=== PATIENT | female | born 1970 | race Two or more races ===

== ENCOUNTER 2019-11-18 03:55 | Inpatient (IN) | payer OTHER ==
[~2019-11-18] VITALS: Ht 170.2 cm; Wt 65.3 kg
[2019-11-18] MEDS ORDERED: HYDROmorphone 2 MG/ML VIAL IV ONE ×2 (04:15→05:15)
[2019-11-18] MEDS ORDERED: ONDANSETRON PF 4 MG/2 ML VIAL. IVP ONE (04:45)
[2019-11-18] MEDS ORDERED: IV NORMAL SALINE 500ML BAG 500 ML IV ONE (04:45)
--- NOTE | 2019-11-18 04:48 | PHYS DOC ---
Past Medical History Past Medical History: No Pertinent History (ОЛЬГА FIGUEREDO MD) Past Surgical History: (ОЛЬГА FIGUEREDO MD) Smoking Status: Never Smoker Alcohol Use: None (ОЛЬГА FIGUEREDO MD) General Adult EDM: Chief Complaint: ABDOMINAL PAIN HPI: HPI: Patient is a 49 year old female who presents with complaints of acute onset of abdominal pain. Patient reports that she was at home when she began to have pain in the epigastrium. She reports that the pain seems to go from the epigastrium into her low back. She describes it as a burning sensation that is constant. She has had nausea and vomiting x1 without any diarrhea. She denies fever, chills or sweats. She reports that she had been in her usual state of fair health. Patient has no past medical history is had a as her only surgery. (ОЛЬГА FIGUEREDO MD) Review of Systems: Review of Systems: Constitutional: Denies fever or chills. [] Eyes: Denies change in visual acuity. [] HENT: Denies nasal congestion or sore throat. [] Respiratory: Denies cough or shortness of breath. [] Cardiovascular: Denies chest pain or edema. [] GI: See HPI. [] : Denies dysuria. [] Musculoskeletal: Denies back pain or joint pain. [] Integument: Denies rash. [] Neurologic: Denies headache, focal weakness or sensory changes. [] Endocrine: Denies polyuria or polydipsia. [] Lymphatic: Denies swollen glands. [] Psychiatric: Denies depression or anxiety. [] (ОЛЬГА FIGUEREDO MD) Heart Score: Risk Factors: Risk Factors: DM, Current or recent (<one month) smoker, HTN, HLP, family his tory of CAD, obesity. Risk Scores: Score 0 - 3: 2.5% MACE over next 6 weeks - Discharge Home Score 4 - 6: 20.3% MACE over next 6 weeks - Admit for Clinical Observation Score 7 - 10: 72.7% MACE over next 6 weeks - Early Invasive Strategies (ОЛЬГА FIGUEREDO MD) Allergies: Allergies: Allergies Coded Allergies Type Severity Reaction Last Updated Verified No Known Drug Allergies 11/18/19 No (ОЛЬГА FIGUEREDO MD) Physical Exam: PE: Constitutional: Well developed, well nourished, no acute distress, non-toxic appearance. [] HENT: Normocephalic, atraumatic, bilateral external ears normal, oropharynx moist, no oral exudates, nose normal. [] Eyes: PERRLA, EOMI, conjunctiva normal, no discharge. [] Neck: Normal range of motion, no tenderness, supple, no stridor. [] Cardiovascular:Heart rate regular rhythm, no murmur [] Lungs & Thorax: Bilateral breath sounds clear to auscultation [] Abdomen: Decreased bowel sounds, soft, tender in the right upper quadrant and epigastrium, positive Blanco sign, voluntary guarding, no rebound. [] Skin: Warm, dry, no erythema, no rash. [] Back: No tenderness, bilateral CVA tenderness left greater than right. [] Extremities: No tenderness, no cyanosis, no clubbing, ROM intact, no edema. [] Neurologic: Alert and oriented X 3, normal motor function, normal sensory function, no focal deficits noted. [] Psychologic: Affect normal, judgement normal, mood normal. [] (ОЛЬГА FIGUEREDO MD) Current Patient Data: Vital Signs: Vital Signs Date Time Temp Pulse Resp B/P (MAP) Pulse Ox O2 Delivery O2 Flow Rate FiO2 11/18/19 04:28 97.9 84 28 142/66 (91) 99 Room Air 97.9 (ОЛЬГА FIGUEREDO MD) Labs: Laboratory Tests Test 11/18/19 04:45 11/18/19 04:58 11/18/19 05:02 White Blood Count 7.0 x10^3/uL Red Blood Count 4.16 x10^6/uL Hemoglobin 12.1 g/dL Hematocrit 35.8 % Mean Corpuscular Volume 86 fL Mean Corpuscular Hemoglobin 29 pg Mean Corpuscular Hemoglobin Concent 34 g/dL Red Cell Distribution Width 13.8 % Platelet Count 236 x10^3/uL Neutrophils (%) (Auto) 62 % Lymphocytes (%) (Auto) 28 % Monocytes (%) (Auto) 8 % Eosinophils (%) (Auto) 2 % Basophils (%) (Auto) 1 % Neutrophils # (Auto) 4.3 x10^3/uL Lymphocytes # (Auto) 1.9 x10^3/uL Monocytes # (Auto) 0.5 x10^3/uL Eosinophils # (Auto) 0.2 x10^3/uL Basophils # (Auto) 0.0 x10^3/uL Prothrombin Time 15.4 SEC Prothromb Time International Ratio 1.3 Sodium Level 140 mmol/L Potassium Level 3.5 mmol/L Chloride Level 105 mmol/L Carbon Dioxide Level 24 mmol/L Anion Gap 11 Blood Urea Nitrogen 12 mg/dL Creatinine 0.7 mg/dL Estimated GFR (Cockcroft-Gault) 89.7 BUN/Creatinine Ratio 17 Glucose Level 157 mg/dL Lactic Acid Level 2.2 mmol/L Calcium Level 8.4 mg/dL Total Bilirubin 0.2 mg/dL Aspartate Amino Transf (AST/SGOT) 23 U/L Alanine Aminotransferase (ALT/SGPT) 34 U/L Alkaline Phosphatase 92 U/L Total Protein 7.0 g/dL Albumin 3.2 g/dL Albumin/Globulin Ratio 0.8 Lipase 171 U/L Urine Collection Type Unknown Urine Color Yellow Urine Clarity Clear Urine pH 7.0 Urine Specific [place] 1.020 Urine Protein Negative mg/dL Urine Glucose (UA) 250 mg/dL Urine Ketones (Stick) Negative mg/dL Urine Blood Negative Urine Nitrite Negative Urine Bilirubin Negative Urine Urobilinogen Dipstick 1.0 mg/dL Urine Leukocyte Esterase Negative Urine RBC 0 /HPF Urine WBC Occ /HPF Urine Squamous Epithelial Cells Few /LPF Urine Bacteria 0 /HPF Urine Mucus Slight /LPF Bedside Urine HCG, Qualitative Hcg negative Current Medications Medications (Trade) Dose Ordered Sig/Kiki Route PRN Reason Start Time Stop Time Status Last Admin Dose Admin Hydromorphone HCl (Dilaudid) 1 mg 1X ONCE IV 11/18/19 04:15 11/18/19 04:16 Cancel Sodium Chloride 500 ml @ 500 mls/hr 1X ONCE IV 11/18/19 04:45 11/18/19 05:44 DC 11/18/19 04:45 Ondansetron HCl (Zofran) 4 mg 1X ONCE IVP 11/18/19 04:45 11/18/19 05:17 DC 11/18/19 05:19 Hydromorphone HCl (Dilaudid) 1 mg 1X ONCE IV 11/18/19 05:15 11/18/19 05:17 DC 11/18/19 05:19 Ondansetron HCl (Zofran) 4 mg STK-MED ONCE .ROUTE 11/18/19 05:17 11/18/19 05:17 DC Iohexol (Omnipaque 300 Mg/ml) 75 ml 1X ONCE IV 11/18/19 06:45 11/18/19 06:46 DC 11/18/19 06:46 Info (CONTRAST GIVEN -- Rx MONITORING) 1 each PRN DAILY PRN MC SEE COMMENTS 11/18/19 06:45 11/20/19 06:44 Vital Signs: Vital Signs Date Time Temp Pulse Resp B/P (MAP) Pulse Ox O2 Delivery O2 Flow Rate FiO2 11/18/19 07:10 62 121/61 (81) 98 Room Air 11/18/19 06:40 63 20 141/69 (93) 98 Room Air 11/18/19 05:55 68 22 137/67 (90) 98 Room Air 11/18/19 05:19 24 97 Room Air 11/18/19 04:28 97.9 84 28 142/66 (91) 99 Room Air 97.9 (HIPOLITO LA MD) EKG: EKG: [] (ОЛЬГА FIGUEREDO MD) Radiology/Procedures: Radiology/Procedures: [] (ОЛЬГА FIGUEREDO MD) Radiology/Procedures: [facility] [address] [facility] [place], [place] [id number] IMAGING REPORT Signed PATIENT: KELVIN MEDINAACCOUNT: [id number] : 1970 LOCATION: ER AGE: 49 SEX: F EXAM STATUS: REG ER ORD. PHYSICIAN: ОЛЬГА FIGUEREDO MD REASON: RUQ abd pain with positive blanco's sign PROCEDURE: CT ABD PELV W/ IV CONTRST ONLY CT abdomen and pelvis with contrast PQRS statement: CT scans at this facility use dose reduction including either automated exposure control, iterative reconstructions, and /or weight based radiation dosing via mA and kV modification when appropriate to reduce radiation dose to as low as reasonably achievable. Contrast: 75 mL Omnipaque 300 intravenous contrast. HISTORY: Right upper quadrant abdominal pain. Abdomen findings: Peripherally calcified hypodensity gallbladder neck likely gallstones. There is subtle hypodensity about the color fossa between the liver surface in the gallbladder which could be edema from inflammation. Pancreas, liver, adrenal glands, kidneys and spleen are unremarkable. 3 cm fatty umbilical abdominal wall hernia. No herniation of bowel. Appendix is negative. No abdominal fluid or adenopathy. Pelvis findings: 2 cm hypodense ring-enhancing lesion left ovary. Small volume of dependent pelvic free fluid. Bladder, uterus, right ovary, rectum and bones are unremarkable. IMPRESSION: 1. Cholelithiasis. There is subtle hypodensity at the gallbladder fossa which could indicate mild edema from inflammation due to early changes of cholecystitis. This could be more definitely characterized with abdominal sonography. 2. Appendix is negative. 3. 2 subcentimeter ring-enhancing hypodense lesion of the left ovary, most likely a ruptured follicle or ruptured cyst. This may be further assessed with pelvic sonography. Electronically signed by: Rah Gonzáles MD (11/18/2019 6:54 AM) [facility] [place] DICTATED and SIGNED BY: RAH GONZÁLES MD DATE: 11/18/19653 (HIPOLITO LA MD) Course & Med Decision Making: Course & Med Decision Making Pertinent Labs and Imaging studies reviewed. (See chart for details) 0600-patient will be turned over to Dr. La. All pertinent history, physical and work-up data were discussed with the accepting physician. [] (ОЛЬГА FIGUEREDO MD) Course & Med Decision Making Received signout from overnight doc regarding this 49-year-old patient with right upper quadrant pain. CT scan was done and signed over to me. CT shows gallstones. Ultrasound was done to rule out cholecystitis. Lab work looks reassuring. Patient with acute cholecystitis on ultrasound. Patient given antibiotics. Patient will be admitted to Dr. Snyder with a consult placed with Dr. Marks. (HIPOLITO LA MD) Dragon Disclaimer: Dragon Disclaimer: This electronic medical record was generated, in whole or in part, using a voice recognition dictation system. (ОЛЬГА FIGUEREDO MD) Departure Departure Impression: Primary Impression: Acute cholecystitis Additional Impression: RUQ pain Disposition: ADMITTED INPATIENT Admitting Physician: RACHEL (taylor) (HIPOLITO LA MD) Condition: STABLE Justicifation of Admission Dx: Justifications for Admission: Justification of Admission Dx: N/A (ОЛЬГА FIGUEREDO MD) Justification of Admission Dx: Yes (HIPOLITO LA MD) ОЛЬГА FIGUEREDO MD Nov 18, 2019 04:48 HIPOLITO LA MD Nov 18, 2019 07:03
[2019-11-18 05:15] LABS: BILIRUBIN,URINE NEGATIVE (NEG); CLARITY,URINE CLEAR; COLOR,URINE YELLOW; NITRITE,URINE NEGATIVE (NEG); PROTEIN,URINE NEGATIVE (NEG-TRACE)
[2019-11-18] MEDS ORDERED: ONDANSETRON PF 4 MG/2 ML VIAL. ONE (05:17)
[2019-11-18 05:35] LABS: BASO % 1 % (0-3); EOS # 0.2 x10^3/uL (0.0-0.7); EOS % 2 % (0-3); HEMATOCRIT 35.8 % (36.0-47.0); HEMOGLOBIN 12.1 g/dL (12.0-15.5); LYMPH # 1.9 x10^3/uL (1.0-4.8); LYMPH % 28 % (24-48); MEAN CORPUSCULAR HEMOGLOBIN 29 pg (25-35); MEAN CORPUSCULAR HGB CONC 34 g/dL (31-37); MEAN CORPUSCULAR VOLUME 86 fL (79-100); MONO # 0.5 x10^3/uL (0.0-1.1); MONO % 8 % (0-9); NEUT # 4.3 x10^3/uL (1.8-7.7); NEUT % 62 % (31-73); PLATELET COUNT 236 x10^3/uL (140-400); RED BLOOD COUNT 4.16 x10^6/uL (3.50-5.40); RED CELL DISTRIBUTION WIDTH 13.8 % (11.5-14.5)
[2019-11-18 05:48] LABS: RBC,URINE 0 /HPF (0-2)
[2019-11-18 05:49] LABS: BACTERIA,URINE 0 /HPF (0-FEW); SQUAMOUS EPITHELIAL CELL,UR FEW /LPF; WBC,URINE OCC /HPF (0-4)
[2019-11-18 05:53] LABS: PROTHROMBIN TIME PATIENT 15.4 SEC (11.7-14.0)
[2019-11-18 06:04] LABS: CALCIUM 8.4 mg/dL (8.5-10.1); CREATININE 0.7 mg/dL (0.6-1.0); GFR 89.7; POTASSIUM 3.5 mmol/L (3.5-5.1)
[2019-11-18 06:10] LABS: ALBUMIN 3.2 g/dL (3.4-5.0); ALBUMIN/GLOBULIN RATIO 0.8 (1.0-1.7); TOTAL BILIRUBIN 0.2 mg/dL (0.2-1.0)
[2019-11-18] MEDS ORDERED: IOHEXOL 300 MG/ML 100ML VIAL. IV ONE (06:45)
[2019-11-18] MEDS ORDERED: CONTRAST GIVEN. MC PRN (06:45)
--- NOTE | 2019-11-18 06:57 | RAD ---
CT abdomen and pelvis with contrast PQRS statement: CT scans at this facility use dose reduction including either automated exposure control, iterative reconstructions, and /or weight based radiation dosing via mA and kV modification when appropriate to reduce radiation dose to as low as reasonably achievable. Contrast: 75 mL Omnipaque 300 intravenous contrast. HISTORY: Right upper quadrant abdominal pain. Abdomen findings: Peripherally calcified hypodensity gallbladder neck likely gallstones. There is subtle hypodensity about the color fossa between the liver surface in the gallbladder which could be edema from inflammation. Pancreas, liver, adrenal glands, kidneys and spleen are unremarkable. 3 cm fatty umbilical abdominal wall hernia. No herniation of bowel. Appendix is negative. No abdominal fluid or adenopathy. Pelvis findings: 2 cm hypodense ring-enhancing lesion left ovary. Small volume of dependent pelvic free fluid. Bladder, uterus, right ovary, rectum and bones are unremarkable. IMPRESSION: 1. Cholelithiasis. There is subtle hypodensity at the gallbladder fossa which could indicate mild edema from inflammation due to early changes of cholecystitis. This could be more definitely characterized with abdominal sonography. 2. Appendix is negative. 3. 2 subcentimeter ring-enhancing hypodense lesion of the left ovary, most likely a ruptured follicle or ruptured cyst. This may be further assessed with pelvic sonography. Electronically signed by: Glenroy Laurent MD (11/18/2019 6:54 AM) [facility]
--- NOTE | 2019-11-18 09:01 | RAD ---
ABDOMEN LTD History: Reason: RUQ PAIN, ABNORMAL CT / Spl. Instructions: / History: Comparison: CT November 18, 2019. Technique: Transabdominal ultrasound images are obtained of the right upper quadrant. Findings: Visualized pancreas is is not well seen due to overlying bowel gas Liver is increased in echogenicity. Portal flow is hepatopedal. Cholelithiasis with no mobile stone in the gallbladder neck. Contracted appearance of the gallbladder. Gallbladder wall thickening. Masslike thickening of the gallbladder fundus measures 4.2 x 1.3 cm. There is increased flow within this region. Borderline dilated common bile duct measures 7 mm. The right kidney measures 10.6 cm. No hydronephrosis. Visualized portions of the aorta and IVC have normal caliber. IMPRESSION: 1. Contracted appearance the gallbladder with masslike wall thickening and increased blood flow as well as cholelithiasis. Findings may represent acute cholecystitis. MRI with and without contrast can further evaluate for underlying mass. 2. Borderline dilated common bile duct. Recommend correlation with biliary lab values. MRCP can also further evaluate. 3. Increased hepatic echotexture, may indicate steatosis. Electronically signed by: Yared Al DO (11/18/2019 8:58 AM) [facility]
[2019-11-18] MEDS ORDERED: MORPHINE SULFATE 2 MG/ML VIAL. IV PRN (09:45)
[2019-11-18] MEDS ORDERED: ONDANSETRON PF 4 MG/2 ML VIAL. IV PRN ×2 (09:45→10:15)
--- NOTE | 2019-11-18 09:56 | PDOC1 ---
History and Physical Date of Admission Date of Admission DATE: 11/18/19 TIME: 09:55 Identification/Chief Complaint Chief Complaint SEEN IN ER WITH US CONCERNING FOR ACUTE CHOLECYSTITIS , 49 year old female who presents with complaints of acute onset of abdominal pain. Patient reports that she was at home when she began to have pain in the epigastrium. She reports that the pain seems to go from the epigastrium into her low back. // has had nausea and vomiting x1 without any diarrhea. She denies fever, chills or sweats DISCUSSED WITH IN ROOM Past Medical History Past Medical History Past Medical History Past Medical History Past Medical History: No Pertinent History Past Surgical History: Smoking Status: Never Smoker Alcohol Use: None fhx htn Cardiovascular: Hyperlipidemia Family History Family History: Hypertension Social History Smoke: No ALCOHOL: none Drugs: None Current Problem List Problem List Problems Medical Problems: (1) Acute cholecystitis Status: Acute (2) RUQ pain Status: Acute Current Medications Current Medications Current Medications Hydromorphone HCl (Dilaudid) 1 mg 1X ONCE IV ; Start 11/18/19 at 04:15; Stop 11/18/19 at 04:16; Status Cancel Sodium Chloride 500 ml @ 500 mls/hr 1X ONCE IV Last administered on 11/18/19at 04:45; Start 11/18/19 at 04:45; Stop 11/18/19 at 05:44; Status DC Ondansetron HCl (Zofran) 4 mg 1X ONCE IVP Last administered on 11/18/19at 05:19; Start 11/18/19 at 04:45; Stop 11/18/19 at 05:17; Status DC Hydromorphone HCl (Dilaudid) 1 mg 1X ONCE IV Last administered on 11/18/19at 05:19; Start 11/18/19 at 05:15; Stop 11/18/19 at 05:17; Status DC Ondansetron HCl (Zofran) 4 mg STK-MED ONCE .ROUTE ; Start 11/18/19 at 05:17; Stop 11/18/19 at 05:17; Status DC Iohexol (Omnipaque 300 Mg/ml) 75 ml 1X ONCE IV Last administered on 11/18/19at 06:46; Start 11/18/19 at 06:45; Stop 11/18/19 at 06:46; Status DC Info (CONTRAST GIVEN -- Rx MONITORING) 1 each PRN DAILY PRN MC SEE COMMENTS; Start 11/18/19 at 06:45; Stop 11/20/19 at 06:44 Levofloxacin/ Dextrose 150 ml @ 100 mls/hr 1X ONCE IV ; Start 11/18/19 at 09:15; Stop 11/18/19 at 10:44 Ondansetron HCl (Zofran) 4 mg PRN Q8HRS PRN IV NAUSEA/VOMITING; Start 11/18/19 at 09:45; Stop 11/19/19 at 09:44 Morphine Sulfate (Morphine Sulfate) 2 mg PRN Q2HR PRN IV PAIN; Start 11/18/19 at 09:45; Stop 11/19/19 at 09:44 Sodium Chloride 1,000 ml @ 125 mls/hr Q8H IV ; Start 11/18/19 at 09:43; Stop 11/19/19 at 09:42 Allergies Allergies: Coded Allergies: No Known Drug Allergies (Unverified , 11/18/19) ROS Review of System Review of Systems: Constitutional: Denies fever or chills. [] Eyes: Denies change in visual acuity. [] HENT: Denies nasal congestion or sore throat. [] Respiratory: Denies cough or shortness of breath. [] Cardiovascular: Denies chest pain or edema. [] GI: See HPI. [] : Denies dysuria. [] Musculoskeletal: Denies back pain or joint pain. [] Integument: Denies rash. [] Neurologic: Denies headache, focal weakness or sensory changes. [] Endocrine: Denies polyuria or polydipsia. [] Lymphatic: Denies swollen glands. [] Psychiatric: Denies depression or anxiety. [] 14 PT ROS OTHERWISE NEG PSYCHOLOGICAL ROS: No: Anxiety, Behavioral Disorder, Concentration difficultie, Decreased libido, Depression, Disorientation, Hallucinations, Hostility, Irritablity, Memory difficulties, Mood Swings, Obsessive thoughts, Physical abuse, Sexual abuse, Sleep disturbances, Suicidal ideation, Other Hematological and Lymphatic: No: Bleeding Problems, Blood Clots, Blood Transfusions, Brusing, Night Sweats, Pallor, Swollen Lymph Nodes, Other Respiratory: No: Cough, Hemoptysis, Orthopnea, Pleuritic Pain, Shortness of breath, SOB with excertion, Sputum Changes, Stridor, Tachypnea, Wheezing, Other Gastrointestinal: Yes Abdominal Pain Musculoskeletal: No Gait Disturbance, No Joint Pain, No Joint Stiffness, No Joint Swelling, No Muscle Pain, No Muscular Weakness, No Pain In:, No Swelling In:, No Other Skin: No Dry Skin, No Eczema, No Hair Changes, No Lumps, No Mole Changes, No Mottling, No Nail Changes, No Pruritus, No Rash, No Skin Lesion Changes, No Other, No Acne Physical Exam Physical Exam Constitutional: Well developed, well nourished, no acute distress, non-toxic appearance. [] HENT: Normocephalic, atraumatic, bilateral external ears normal, oropharynx moist, no oral exudates, nose normal. [] Eyes: PERRLA, EOMI, conjunctiva normal, no discharge. [] Neck: Normal range of motion, no tenderness, supple, no stridor. [] Cardiovascular:Heart rate regular rhythm, no murmur [] Lungs & Thorax: Bilateral breath sounds clear to auscultation [] Abdomen: Decreased bowel sounds, soft, tender in the right upper quadrant and epigastrium, positive Blanco sign, voluntary guarding, no rebound. [] Skin: Warm, dry, no erythema, no rash. [] Back: No tenderness, bilateral CVA tenderness left greater than right. [] Extremities: No tenderness, no cyanosis, no clubbing, ROM intact, no edema. [] Neurologic: Alert and oriented X 3, normal motor function, normal sensory function, no focal deficits noted. [] Psychologic: Affect normal, judgement normal, mood normal. [] General: Alert, Oriented X3, Cooperative HEENT: Atraumatic, EOMI, Mucous membr. moist/pink Lungs: Clear to auscultation, Normal air movement Heart: S1S2, RRR, no murmurs, no jug vein distention Breasts: Not examined Abdomen: Soft, No masses Rectal Exam: not examined PELVIC: Examination not indicated Extremities: No cyanosis Neuro: Normal speech, Cranial nerves 3-12 NL Psych/Mental Status: Mental status NL, Mood NL Vitals Vitals Vital Signs Date Time Temp Pulse Resp B/P (MAP) Pulse Ox O2 Delivery O2 Flow Rate FiO2 11/18/19 07:10 62 121/61 (81) 98 Room Air 11/18/19 06:40 20 11/18/19 04:28 97.9 97.9 Labs Labs Laboratory Tests Test 11/18/19 04:45 11/18/19 04:58 11/18/19 05:02 White Blood Count 7.0 x10^3/uL (4.0-11.0) Red Blood Count 4.16 x10^6/uL (3.50-5.40) Hemoglobin 12.1 g/dL (12.0-15.5) Hematocrit 35.8 % (36.0-47.0) Mean Corpuscular Volume 86 fL (79-100) Mean Corpuscular Hemoglobin 29 pg (25-35) Mean Corpuscular Hemoglobin Concent 34 g/dL (31-37) Red Cell Distribution Width 13.8 % (11.5-14.5) Platelet Count 236 x10^3/uL (140-400) Neutrophils (%) (Auto) 62 % (31-73) Lymphocytes (%) (Auto) 28 % (24-48) Monocytes (%) (Auto) 8 % (0-9) Eosinophils (%) (Auto) 2 % (0-3) Basophils (%) (Auto) 1 % (0-3) Neutrophils # (Auto) 4.3 x10^3/uL (1.8-7.7) Lymphocytes # (Auto) 1.9 x10^3/uL (1.0-4.8) Monocytes # (Auto) 0.5 x10^3/uL (0.0-1.1) Eosinophils # (Auto) 0.2 x10^3/uL (0.0-0.7) Basophils # (Auto) 0.0 x10^3/uL (0.0-0.2) Prothrombin Time 15.4 SEC (11.7-14.0) Prothromb Time International Ratio 1.3 (0.8-1.1) Sodium Level 140 mmol/L (136-145) Potassium Level 3.5 mmol/L (3.5-5.1) Chloride Level 105 mmol/L (98-107) Carbon Dioxide Level 24 mmol/L (21-32) Anion Gap 11 (6-14) Blood Urea Nitrogen 12 mg/dL (7-20) Creatinine 0.7 mg/dL (0.6-1.0) Estimated GFR (Cockcroft-Gault) 89.7 BUN/Creatinine Ratio 17 (6-20) Glucose Level 157 mg/dL (70-99) Lactic Acid Level 2.2 mmol/L (0.4-2.0) Calcium Level 8.4 mg/dL (8.5-10.1) Total Bilirubin 0.2 mg/dL (0.2-1.0) Aspartate Amino Transf (AST/SGOT) 23 U/L (15-37) Alanine Aminotransferase (ALT/SGPT) 34 U/L (14-59) Alkaline Phosphatase 92 U/L (46-116) Total Protein 7.0 g/dL (6.4-8.2) Albumin 3.2 g/dL (3.4-5.0) Albumin/Globulin Ratio 0.8 (1.0-1.7) Lipase 171 U/L (73-393) Urine Collection Type Unknown Urine Color Yellow Urine Clarity Clear Urine pH 7.0 (<5.0-8.0) Urine Specific [place] 1.020 (1.000-1.030) Urine Protein Negative mg/dL (NEG-TRACE) Urine Glucose (UA) 250 mg/dL (NEG) Urine Ketones (Stick) Negative mg/dL (NEG) Urine Blood Negative (NEG) Urine Nitrite Negative (NEG) Urine Bilirubin Negative (NEG) Urine Urobilinogen Dipstick 1.0 mg/dL (0.2 mg/dL) Urine Leukocyte Esterase Negative (NEG) Urine RBC 0 /HPF (0-2) Urine WBC Occ /HPF (0-4) Urine Squamous Epithelial Cells Few /LPF Urine Bacteria 0 /HPF (0-FEW) Urine Mucus Slight /LPF Bedside Urine HCG, Qualitative Hcg negative (Negative) Laboratory Tests Test 11/18/19 04:45 11/18/19 04:58 11/18/19 05:02 White Blood Count 7.0 x10^3/uL (4.0-11.0) Red Blood Count 4.16 x10^6/uL (3.50-5.40) Hemoglobin 12.1 g/dL (12.0-15.5) Hematocrit 35.8 % (36.0-47.0) Mean Corpuscular Volume 86 fL (79-100) Mean Corpuscular Hemoglobin 29 pg (25-35) Mean Corpuscular Hemoglobin Concent 34 g/dL (31-37) Red Cell Distribution Width 13.8 % (11.5-14.5) Platelet Count 236 x10^3/uL (140-400) Neutrophils (%) (Auto) 62 % (31-73) Lymphocytes (%) (Auto) 28 % (24-48) Monocytes (%) (Auto) 8 % (0-9) Eosinophils (%) (Auto) 2 % (0-3) Basophils (%) (Auto) 1 % (0-3) Neutrophils # (Auto) 4.3 x10^3/uL (1.8-7.7) Lymphocytes # (Auto) 1.9 x10^3/uL (1.0-4.8) Monocytes # (Auto) 0.5 x10^3/uL (0.0-1.1) Eosinophils # (Auto) 0.2 x10^3/uL (0.0-0.7) Basophils # (Auto) 0.0 x10^3/uL (0.0-0.2) Prothrombin Time 15.4 SEC (11.7-14.0) Prothromb Time International Ratio 1.3 (0.8-1.1) Sodium Level 140 mmol/L (136-145) Potassium Level 3.5 mmol/L (3.5-5.1) Chloride Level 105 mmol/L (98-107) Carbon Dioxide Level 24 mmol/L (21-32) Anion Gap 11 (6-14) Blood Urea Nitrogen 12 mg/dL (7-20) Creatinine 0.7 mg/dL (0.6-1.0) Estimated GFR (Cockcroft-Gault) 89.7 BUN/Creatinine Ratio 17 (6-20) Glucose Level 157 mg/dL (70-99) Lactic Acid Level 2.2 mmol/L (0.4-2.0) Calcium Level 8.4 mg/dL (8.5-10.1) Total Bilirubin 0.2 mg/dL (0.2-1.0) Aspartate Amino Transf (AST/SGOT) 23 U/L (15-37) Alanine Aminotransferase (ALT/SGPT) 34 U/L (14-59) Alkaline Phosphatase 92 U/L (46-116) Total Protein 7.0 g/dL (6.4-8.2) Albumin 3.2 g/dL (3.4-5.0) Albumin/Globulin Ratio 0.8 (1.0-1.7) Lipase 171 U/L (73-393) Urine Collection Type Unknown Urine Color Yellow Urine Clarity Clear Urine pH 7.0 (<5.0-8.0) Urine Specific [place] 1.020 (1.000-1.030) Urine Protein Negative mg/dL (NEG-TRACE) Urine Glucose (UA) 250 mg/dL (NEG) Urine Ketones (Stick) Negative mg/dL (NEG) Urine Blood Negative (NEG) Urine Nitrite Negative (NEG) Urine Bilirubin Negative (NEG) Urine Urobilinogen Dipstick 1.0 mg/dL (0.2 mg/dL) Urine Leukocyte Esterase Negative (NEG) Urine RBC 0 /HPF (0-2) Urine WBC Occ /HPF (0-4) Urine Squamous Epithelial Cells Few /LPF Urine Bacteria 0 /HPF (0-FEW) Urine Mucus Slight /LPF Bedside Urine HCG, Qualitative Hcg negative (Negative) Images Images CT abdomen and pelvis with contrast PQRS statement: CT scans at this facility use dose reduction including either automated exposure control, iterative reconstructions, and /or weight based radiation dosing via mA and kV modification when appropriate to reduce radiation dose to as low as reasonably achievable. Contrast: 75 mL Omnipaque 300 intravenous contrast. HISTORY: Right upper quadrant abdominal pain. Abdomen findings: Peripherally calcified hypodensity gallbladder neck likely gallstones. There is subtle hypodensity about the color fossa between the liver surface in the gallbladder which could be edema from inflammation. Pancreas, liver, adrenal glands, kidneys and spleen are unremarkable. 3 cm fatty umbilical abdominal wall hernia. No herniation of bowel. Appendix is negative. No abdominal fluid or adenopathy. Pelvis findings: 2 cm hypodense ring-enhancing lesion left ovary. Small volume of dependent pelvic free fluid. Bladder, uterus, right ovary, rectum and bones are unremarkable. IMPRESSION: 1. Cholelithiasis. There is subtle hypodensity at the gallbladder fossa which could indicate mild edema from inflammation due to early changes of cholecystitis. This could be more definitely characterized with abdominal sonography. 2. Appendix is negative. 3. 2 subcentimeter ring-enhancing hypodense lesion of the left ovary, most likely a ruptured follicle or ruptured cyst. This may be further assessed with pelvic sonography. Electronically signed by: Glenroy Gonzáles MD (11/18/2019 6:54 AM) [facility] [place] [facility] [place] and SIGNED BY: GLENROY GONZÁLES MD DATE: 11/18/19 0654 VTE Prophylaxis Ordered VTE Prophylaxis Devices: Yes VTE Pharmacological Prophylaxi: Yes Assessment/Plan Assessment/Plan IMPRESSION: 1. Cholelithiasis. // subtle hypodensity at the gallbladder fossa mild edema from inflammation due to early changes of cholecystitis. on ct Contracted appearance the gallbladder with masslike wall thickening and increased blood flow as well as cholelithiasis. Findings may represent acute cholecystitis. BY ultrasound 2. Appendix is negative. 3. 2 subcentimeter ring-enhancing hypodense lesion of the left ovary, most likely a ruptured follicle or ruptured cyst. plan admit Surgery consult NPO emperic iv antibiotics covid-19 screen iv fluid support dvt prophylaxis Justicifation of Admission Dx: Justifications for Admission: Justification of Admission Dx: Yes JORGE GALICIA MD Nov 18, 2019 09:56
[2019-11-18] MEDS: IV NORMAL SALINE 1000ML BAG 1,000 ML IV SCH ×2 (09:58→17:37)
[2019-11-18] MEDS ORDERED: MAG HYDROX/ALUMINUM HYD/SIMETH 30 ML ORAL.SUSP PO PRN (10:15)
[2019-11-18] MEDS ORDERED: ACETAMINOPHEN 325 MG TABLET. PO PRN (10:15)
[2019-11-18] MEDS ORDERED: DOCUSATE SODIUM 100 MG CAPSULE. PO PRN (10:15)
[2019-11-18] MEDS ORDERED: SODIUM PHOSPHATES 19/7GM 133 ML ENEMA. PR PRN (10:15)
[2019-11-18] MEDS ORDERED: 0.9 % SODIUM CHLORIDE 10 ML DISP.SYRIN. IV PRN (10:15)
[2019-11-18] MEDS ORDERED: LORazepam 0.5 MG TABLET PO PRN (10:15)
[2019-11-18] MEDS ORDERED: cloNIDine HCL 0.1 MG TABLET PO PRN (10:15)
[2019-11-18] MEDS ORDERED: guaiFENesin ORAL 200 MG/10 ML LIQUID. PO PRN (10:15)
[2019-11-18] MEDS ORDERED: ALBUTEROL SULFATE 2.5 MG/3 ML NEBU. NEB PRN (10:15)
[2019-11-18] MEDS ORDERED: ZOLPIDEM 5 MG TABLET. PO PRN (10:15)
[2019-11-18] MEDS ORDERED: IOHEXOL 300 MG/ML 100ML VIAL. ONE (10:57)
[2019-11-18 11:15] VITALS: BP 152/76
[2019-11-18] MEDS: PIPERACILLIN/TAZOBACTAM 3.375 GM in IV NORMAL SALINE 50ML 50 ML IV SCH ×2 (11:49→17:37)
--- NOTE | 2019-11-18 12:07 | PDOC2 ---
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 Acute onset abdominal pain epigastric, radiates to back. Associated n/v. No constipation or diarrhea. Did have similar symptoms about a month ago. However took some medication and resolved on own. Past Medical History Past Medical History no pertinent hx Cardiovascular: Hyperlipidemia Past Surgical History Past Surgical History: No pertinent history Family History Family History: Hypertension Social History No ALCOHOL: none Drugs: None Lives: with Family Current Problem List Problem List Problems Medical Problems: (1) Acute cholecystitis Status: Acute (2) RUQ pain Status: Acute Current Medications Current Medications Current Medications Hydromorphone HCl (Dilaudid) 1 mg 1X ONCE IV ; Start 11/18/19 at 04:15; Stop 11/18/19 at 04:16; Status Cancel Sodium Chloride 500 ml @ 500 mls/hr 1X ONCE IV Last administered on 11/18/19at 04:45; Start 11/18/19 at 04:45; Stop 11/18/19 at 05:44; Status DC Ondansetron HCl (Zofran) 4 mg 1X ONCE IVP Last administered on 11/18/19at 05:19; Start 11/18/19 at 04:45; Stop 11/18/19 at 05:17; Status DC Hydromorphone HCl (Dilaudid) 1 mg 1X ONCE IV Last administered on 11/18/19at 05:19; Start 11/18/19 at 05:15; Stop 11/18/19 at 05:17; Status DC Ondansetron HCl (Zofran) 4 mg STK-MED ONCE .ROUTE ; Start 11/18/19 at 05:17; Stop 11/18/19 at 05:17; Status DC Iohexol (Omnipaque 300 Mg/ml) 75 ml 1X ONCE IV Last administered on 11/18/19at 06:46; Start 11/18/19 at 06:45; Stop 11/18/19 at 06:46; Status DC Info (CONTRAST GIVEN -- Rx MONITORING) 1 each PRN DAILY PRN MC SEE COMMENTS; Start 11/18/19 at 06:45; Stop 11/20/19 at 06:44 Levofloxacin/ Dextrose 150 ml @ 100 mls/hr 1X ONCE IV Last administered on 11/18/19at 09:59; Start 11/18/19 at 09:15; Stop 11/18/19 at 10:44; Status DC Ondansetron HCl (Zofran) 4 mg PRN Q8HRS PRN IV NAUSEA/VOMITING; Start 11/18/19 at 09:45; Stop 11/18/19 at 10:13; Status DC Morphine Sulfate (Morphine Sulfate) 2 mg PRN Q2HR PRN IV PAIN; Start 11/18/19 at 09:45; Stop 11/19/19 at 09:44 Sodium Chloride 1,000 ml @ 125 mls/hr Q8H IV Last administered on 11/18/19at 09:58; Start 11/18/19 at 09:43; Stop 11/19/19 at 09:42 Sodium Chloride (Normal Saline Flush) 3 ml QSHIFT PRN IV AFTER MEDS AND BLOOD DRAWS; Start 11/18/19 at 10:15 Sodium Chloride 1,000 ml @ 100 mls/hr Q10H IV ; Start 11/19/19 at 10:00 Ondansetron HCl (Zofran) 4 mg PRN Q4HRS PRN IV NAUSEA/VOMITING; Start 11/18/19 at 10:15 Zolpidem Tartrate (Ambien) 5 mg PRN QHS PRN PO INSOMNIA; Start 11/18/19 at 10:15 Acetaminophen (Tylenol) 650 mg PRN Q4HRS PRN PO TEMP OVER 100.4F OR MILD PAIN; Start 11/18/19 at 10:15 Al Hydroxide/Mg Hydroxide (Mylanta Plus Xs) 30 ml PRN DAILY PRN PO HEARTBURN / GAS; Start 11/18/19 at 10:15 Clonidine HCl (Catapres) 0.1 mg PRN Q6HRS PRN PO SBP>160 OR DBP>90; Start 11/18/19 at 10:15 Sodium Monofluorophosphate (Fleet Adult) 133 ml PRN DAILY PRN IN CONSTIPATION; Start 11/18/19 at 10:15 Docusate Sodium (Colace) 100 mg PRN BID PRN PO HARD STOOLS; Start 11/18/19 at 10:15 Albuterol Sulfate (Ventolin Neb Soln) 2.5 mg PRN Q4HRS PRN NEB SHORTNESS OF BREATH; Start 11/18/19 at 10:15 Guaifenesin (Robitussin) 200 mg PRN Q4HRS PRN PO COUGH; Start 11/18/19 at 10:15 Lorazepam (Ativan) 0.5 mg PRN Q4HRS PRN PO ANXIETY / AGITATION; Start 11/18/19 at 10:15 Enoxaparin Sodium (Lovenox 40mg Syringe) 40 mg Q24H SQ ; Start 11/18/19 at 16:00 Piperacillin Sod/ Tazobactam Sod 3.375 gm/Sodium Chloride 50 ml @ 100 mls/hr Q6HRS IV Last administered on 11/18/19at 11:49; Start 11/18/19 at 12:00 Iohexol (Omnipaque 300 Mg/ml) 100 ml STK-MED ONCE .ROUTE ; Start 11/18/19 at 10:57; Stop 11/18/19 at 10:58; Status DC Active Scripts Active Reported No Known Medications Prior To Admisstion (Info) Each 1 Each MC 1X Allergies Allergies: Coded Allergies: No Known Drug Allergies (Unverified , 11/18/19) ROS General: No: Chills, Other (fevers ) PSYCHOLOGICAL ROS: No: Anxiety, Depression Eyes: No Blurry vision, No Double vision HEENT: No: Heacaches, Sore Throat Hematological and Lymphatic: No: Bleeding Problems, Blood Clots Respiratory: No: Cough, Shortness of breath Cardiovascular: No Chest Pain, No Palpitations Gastrointestinal: Yes Other (see hpi) Genitourinary: No Dysuria, No Hematuria Musculoskeletal: No Joint Pain, No Muscle Pain Neurological: No Impaired Coord/balance, No Numbness/Tingling Skin: No Pruritus, No Rash Physical Exam General: Alert, Oriented X3, Cooperative HEENT: Atraumatic, PERRLA Lungs: Clear to auscultation, Normal air movement Heart: Regular rate, Normal S1, Normal S2 Abdomen: Soft, Other (TTP RUQ, epigastric ) Extremities: No clubbing, No cyanosis Skin: No rashes, No breakdown Neuro: Normal gait, Normal speech Psych/Mental Status: Mental status NL, Mood NL MUSCULOSKELETAL: No deformity, No swelling Vitals VITALS Vital Signs Date Time Temp Pulse Resp B/P (MAP) Pulse Ox O2 Delivery O2 Flow Rate FiO2 11/18/19 11:18 Room Air 11/18/19 07:10 62 121/61 (81) 98 11/18/19 06:40 20 11/18/19 04:28 97.9 97.9 Labs Labs Laboratory Tests Test 11/18/19 04:45 11/18/19 04:58 11/18/19 05:02 11/18/19 10:40 White Blood Count 7.0 x10^3/uL (4.0-11.0) Red Blood Count 4.16 x10^6/uL (3.50-5.40) Hemoglobin 12.1 g/dL (12.0-15.5) Hematocrit 35.8 % (36.0-47.0) Mean Corpuscular Volume 86 fL (79-100) Mean Corpuscular Hemoglobin 29 pg (25-35) Mean Corpuscular Hemoglobin Concent 34 g/dL (31-37) Red Cell Distribution Width 13.8 % (11.5-14.5) Platelet Count 236 x10^3/uL (140-400) Neutrophils (%) (Auto) 62 % (31-73) Lymphocytes (%) (Auto) 28 % (24-48) Monocytes (%) (Auto) 8 % (0-9) Eosinophils (%) (Auto) 2 % (0-3) Basophils (%) (Auto) 1 % (0-3) Neutrophils # (Auto) 4.3 x10^3/uL (1.8-7.7) Lymphocytes # (Auto) 1.9 x10^3/uL (1.0-4.8) Monocytes # (Auto) 0.5 x10^3/uL (0.0-1.1) Eosinophils # (Auto) 0.2 x10^3/uL (0.0-0.7) Basophils # (Auto) 0.0 x10^3/uL (0.0-0.2) Prothrombin Time 15.4 SEC (11.7-14.0) Prothromb Time International Ratio 1.3 (0.8-1.1) Sodium Level 140 mmol/L (136-145) Potassium Level 3.5 mmol/L (3.5-5.1) Chloride Level 105 mmol/L (98-107) Carbon Dioxide Level 24 mmol/L (21-32) Anion Gap 11 (6-14) Blood Urea Nitrogen 12 mg/dL (7-20) Creatinine 0.7 mg/dL (0.6-1.0) Estimated GFR (Cockcroft-Gault) 89.7 BUN/Creatinine Ratio 17 (6-20) Glucose Level 157 mg/dL (70-99) Lactic Acid Level 2.2 mmol/L (0.4-2.0) Calcium Level 8.4 mg/dL (8.5-10.1) Total Bilirubin 0.2 mg/dL (0.2-1.0) Aspartate Amino Transf (AST/SGOT) 23 U/L (15-37) Alanine Aminotransferase (ALT/SGPT) 34 U/L (14-59) Alkaline Phosphatase 92 U/L (46-116) Total Protein 7.0 g/dL (6.4-8.2) Albumin 3.2 g/dL (3.4-5.0) Albumin/Globulin Ratio 0.8 (1.0-1.7) Lipase 171 U/L (73-393) Urine Collection Type Unknown Urine Color Yellow Urine Clarity Clear Urine pH 7.0 (<5.0-8.0) Urine Specific [place] 1.020 (1.000-1.030) Urine Protein Negative mg/dL (NEG-TRACE) Urine Glucose (UA) 250 mg/dL (NEG) Urine Ketones (Stick) Negative mg/dL (NEG) Urine Blood Negative (NEG) Urine Nitrite Negative (NEG) Urine Bilirubin Negative (NEG) Urine Urobilinogen Dipstick 1.0 mg/dL (0.2 mg/dL) Urine Leukocyte Esterase Negative (NEG) Urine RBC 0 /HPF (0-2) Urine WBC Occ /HPF (0-4) Urine Squamous Epithelial Cells Few /LPF Urine Bacteria 0 /HPF (0-FEW) Urine Mucus Slight /LPF Bedside Urine HCG, Qualitative Hcg negative (Negative) SARS-CoV-2 Antigen (Rapid) Negative (NEGATIVE) Test 11/18/19 10:50 Lactic Acid Level 1.9 mmol/L (0.4-2.0) Laboratory Tests Test 11/18/19 04:45 11/18/19 04:58 11/18/19 05:02 11/18/19 10:40 White Blood Count 7.0 x10^3/uL (4.0-11.0) Red Blood Count 4.16 x10^6/uL (3.50-5.40) Hemoglobin 12.1 g/dL (12.0-15.5) Hematocrit 35.8 % (36.0-47.0) Mean Corpuscular Volume 86 fL (79-100) Mean Corpuscular Hemoglobin 29 pg (25-35) Mean Corpuscular Hemoglobin Concent 34 g/dL (31-37) Red Cell Distribution Width 13.8 % (11.5-14.5) Platelet Count 236 x10^3/uL (140-400) Neutrophils (%) (Auto) 62 % (31-73) Lymphocytes (%) (Auto) 28 % (24-48) Monocytes (%) (Auto) 8 % (0-9) Eosinophils (%) (Auto) 2 % (0-3) Basophils (%) (Auto) 1 % (0-3) Neutrophils # (Auto) 4.3 x10^3/uL (1.8-7.7) Lymphocytes # (Auto) 1.9 x10^3/uL (1.0-4.8) Monocytes # (Auto) 0.5 x10^3/uL (0.0-1.1) Eosinophils # (Auto) 0.2 x10^3/uL (0.0-0.7) Basophils # (Auto) 0.0 x10^3/uL (0.0-0.2) Prothrombin Time 15.4 SEC (11.7-14.0) Prothromb Time International Ratio 1.3 (0.8-1.1) Sodium Level 140 mmol/L (136-145) Potassium Level 3.5 mmol/L (3.5-5.1) Chloride Level 105 mmol/L (98-107) Carbon Dioxide Level 24 mmol/L (21-32) Anion Gap 11 (6-14) Blood Urea Nitrogen 12 mg/dL (7-20) Creatinine 0.7 mg/dL (0.6-1.0) Estimated GFR (Cockcroft-Gault) 89.7 BUN/Creatinine Ratio 17 (6-20) Glucose Level 157 mg/dL (70-99) Lactic Acid Level 2.2 mmol/L (0.4-2.0) Calcium Level 8.4 mg/dL (8.5-10.1) Total Bilirubin 0.2 mg/dL (0.2-1.0) Aspartate Amino Transf (AST/SGOT) 23 U/L (15-37) Alanine Aminotransferase (ALT/SGPT) 34 U/L (14-59) Alkaline Phosphatase 92 U/L (46-116) Total Protein 7.0 g/dL (6.4-8.2) Albumin 3.2 g/dL (3.4-5.0) Albumin/Globulin Ratio 0.8 (1.0-1.7) Lipase 171 U/L (73-393) Urine Collection Type Unknown Urine Color Yellow Urine Clarity Clear Urine pH 7.0 (<5.0-8.0) Urine Specific [place] 1.020 (1.000-1.030) Urine Protein Negative mg/dL (NEG-TRACE) Urine Glucose (UA) 250 mg/dL (NEG) Urine Ketones (Stick) Negative mg/dL (NEG) Urine Blood Negative (NEG) Urine Nitrite Negative (NEG) Urine Bilirubin Negative (NEG) Urine Urobilinogen Dipstick 1.0 mg/dL (0.2 mg/dL) Urine Leukocyte Esterase Negative (NEG) Urine RBC 0 /HPF (0-2) Urine WBC Occ /HPF (0-4) Urine Squamous Epithelial Cells Few /LPF Urine Bacteria 0 /HPF (0-FEW) Urine Mucus Slight /LPF Bedside Urine HCG, Qualitative Hcg negative (Negative) SARS-CoV-2 Antigen (Rapid) Negative (NEGATIVE) Test 11/18/19 10:50 Lactic Acid Level 1.9 mmol/L (0.4-2.0) Assessment/Plan Assessment/Plan cholecystitis abx, bowel rest surgery tuesday HIPOLITO ALVARADO MD 11/19/19 1337: CONSULT Assessment/Plan Assessment/Plan Agree with above VICTORIA HAYES [employer] Nov 18, 2019 12:06 HIPOLITO ALVARADO MD Nov 19, 2019 13:37
[2019-11-18 15:00] VITALS: BP 135/72
[2019-11-18] MEDS: ENOXAPARIN 40 MG/0.4 ML SYRINGE. SQ SCH (16:53)
[2019-11-18 19:23] VITALS: BP 124/61
[2019-11-18] MEDS: LACTOBACILLUS RHAMNOSUS GG 1 CAPSULE. PO SCH (21:37)
[2019-11-18 23:00] VITALS: BP 131/67
[2019-11-19] VITALS (12 sets, daily range): BP systolic 106–142; BP diastolic 63–73
[2019-11-19] MEDS: PIPERACILLIN/TAZOBACTAM 3.375 GM in IV NORMAL SALINE 50ML 50 ML IV SCH ×5 (00:10→23:53)
[2019-11-19] MEDS: IV NORMAL SALINE 1000ML BAG 1,000 ML IV SCH ×3 (03:16→20:00)
[2019-11-19 04:54] LABS: BASO % 0 % (0-3); EOS # 0.1 x10^3/uL (0.0-0.7); EOS % 2 % (0-3); HEMATOCRIT 33.5 % (36.0-47.0); HEMOGLOBIN 11.3 g/dL (12.0-15.5); LYMPH % 34 % (24-48); MEAN CORPUSCULAR HEMOGLOBIN 29 pg (25-35); MEAN CORPUSCULAR HGB CONC 34 g/dL (31-37); MEAN CORPUSCULAR VOLUME 87 fL (79-100); MONO # 0.4 x10^3/uL (0.0-1.1); MONO % 7 % (0-9); NEUT # 3.2 x10^3/uL (1.8-7.7); NEUT % 56 % (31-73); PLATELET COUNT 228 x10^3/uL (140-400); RED BLOOD COUNT 3.86 x10^6/uL (3.50-5.40); RED CELL DISTRIBUTION WIDTH 14.1 % (11.5-14.5); WHITE BLOOD COUNT 5.7 x10^3/uL (4.0-11.0)
[2019-11-19 05:12] LABS: ALBUMIN 2.8 g/dL (3.4-5.0); ALBUMIN/GLOBULIN RATIO 0.8 (1.0-1.7); CREATININE 0.8 mg/dL (0.6-1.0); TOTAL PROTEIN 6.4 g/dL (6.4-8.2)
[2019-11-19 05:13] LABS: GFR 76.9; POTASSIUM 3.5 mmol/L (3.5-5.1); TOTAL BILIRUBIN 0.5 mg/dL (0.2-1.0)
[2019-11-19] MEDS: LACTOBACILLUS RHAMNOSUS GG 1 CAPSULE. PO SCH ×2 (09:00→20:47)
[2019-11-19] MEDS ORDERED: LIDOCAINE 2% PF 5 ML VIAL. ONE (10:45)
[2019-11-19] MEDS ORDERED: SUCCINYLCHOLINE 200 MG/10 ML VIAL. ONE (10:45)
[2019-11-19] MEDS ORDERED: PROPOFOL 10 MG/ML (20ML) VIAL. IV ONE (10:45)
[2019-11-19] MEDS ORDERED: fentaNYL PF VIAL 100 MCG/2 ML VIAL ONE ×2 (10:45→15:26)
[2019-11-19] MEDS ORDERED: ROCURONIUM 50 MG/5 ML VIAL. ONE (10:46)
--- NOTE | 2019-11-19 10:58 | PDOC ---
PROGRESS NOTES Date of Service: DATE: 11/19/19 TIME: 10:56 Chief Complaint Chief Complaint 1. acute Cholelithiasis. // subtle hypodensity at the gallbladder fossa mild edema from inflammation due to early changes of cholecystitis. on ct d 2. Appendix is negative. History of Present Illness History of Present Illness Surgery consult folliwing to OR when COVID is neg, in PUI rule out NPO cont emperic iv antibiotics started iv fluid support dvt prophylaxis Vitals Vitals Vital Signs Date Time Temp Pulse Resp B/P (MAP) Pulse Ox O2 Delivery O2 Flow Rate FiO2 11/19/19 08:12 Room Air 11/19/19 07:55 98.3 72 16 120/64 (82) 98 98.3 Physical Exam General: Alert, Oriented X3, Cooperative Heart: Regular rate, Normal S1, Normal S2 Abdomen: Soft, Other (TTP RUQ, epigastric ) Extremities: No clubbing, No cyanosis Skin: No rashes, No breakdown Labs LABS Laboratory Tests Test 11/19/19 03:50 11/19/19 04:30 Sodium Level 140 mmol/L (136-145) Potassium Level 3.5 mmol/L (3.5-5.1) Chloride Level 107 mmol/L (98-107) Carbon Dioxide Level 24 mmol/L (21-32) Anion Gap 9 (6-14) Blood Urea Nitrogen 5 mg/dL (7-20) Creatinine 0.8 mg/dL (0.6-1.0) Estimated GFR (Cockcroft-Gault) 76.9 BUN/Creatinine Ratio 6 (6-20) Glucose Level 96 mg/dL (70-99) Calcium Level 8.0 mg/dL (8.5-10.1) Total Bilirubin 0.5 mg/dL (0.2-1.0) Aspartate Amino Transf (AST/SGOT) 33 U/L (15-37) Alanine Aminotransferase (ALT/SGPT) 34 U/L (14-59) Alkaline Phosphatase 73 U/L (46-116) Total Protein 6.4 g/dL (6.4-8.2) Albumin 2.8 g/dL (3.4-5.0) Albumin/Globulin Ratio 0.8 (1.0-1.7) White Blood Count 5.7 x10^3/uL (4.0-11.0) Red Blood Count 3.86 x10^6/uL (3.50-5.40) Hemoglobin 11.3 g/dL (12.0-15.5) Hematocrit 33.5 % (36.0-47.0) Mean Corpuscular Volume 87 fL (79-100) Mean Corpuscular Hemoglobin 29 pg (25-35) Mean Corpuscular Hemoglobin Concent 34 g/dL (31-37) Red Cell Distribution Width 14.1 % (11.5-14.5) Platelet Count 228 x10^3/uL (140-400) Neutrophils (%) (Auto) 56 % (31-73) Lymphocytes (%) (Auto) 34 % (24-48) Monocytes (%) (Auto) 7 % (0-9) Eosinophils (%) (Auto) 2 % (0-3) Basophils (%) (Auto) 0 % (0-3) Neutrophils # (Auto) 3.2 x10^3/uL (1.8-7.7) Lymphocytes # (Auto) 2.0 x10^3/uL (1.0-4.8) Monocytes # (Auto) 0.4 x10^3/uL (0.0-1.1) Eosinophils # (Auto) 0.1 x10^3/uL (0.0-0.7) Basophils # (Auto) 0.0 x10^3/uL (0.0-0.2) Assessment and Plan Assessmemt and Plan Problems Medical Problems: (1) Acute cholecystitis Status: Acute (2) RUQ pain Status: Acute Comment Review of Relevant I have reviewed the following items sean (where applicable) has been applied. Labs Laboratory Tests Test 11/18/19 04:45 11/18/19 04:58 11/18/19 05:02 11/18/19 10:40 White Blood Count 7.0 x10^3/uL (4.0-11.0) Red Blood Count 4.16 x10^6/uL (3.50-5.40) Hemoglobin 12.1 g/dL (12.0-15.5) Hematocrit 35.8 % (36.0-47.0) Mean Corpuscular Volume 86 fL (79-100) Mean Corpuscular Hemoglobin 29 pg (25-35) Mean Corpuscular Hemoglobin Concent 34 g/dL (31-37) Red Cell Distribution Width 13.8 % (11.5-14.5) Platelet Count 236 x10^3/uL (140-400) Neutrophils (%) (Auto) 62 % (31-73) Lymphocytes (%) (Auto) 28 % (24-48) Monocytes (%) (Auto) 8 % (0-9) Eosinophils (%) (Auto) 2 % (0-3) Basophils (%) (Auto) 1 % (0-3) Neutrophils # (Auto) 4.3 x10^3/uL (1.8-7.7) Lymphocytes # (Auto) 1.9 x10^3/uL (1.0-4.8) Monocytes # (Auto) 0.5 x10^3/uL (0.0-1.1) Eosinophils # (Auto) 0.2 x10^3/uL (0.0-0.7) Basophils # (Auto) 0.0 x10^3/uL (0.0-0.2) Prothrombin Time 15.4 SEC (11.7-14.0) Prothromb Time International Ratio 1.3 (0.8-1.1) Sodium Level 140 mmol/L (136-145) Potassium Level 3.5 mmol/L (3.5-5.1) Chloride Level 105 mmol/L (98-107) Carbon Dioxide Level 24 mmol/L (21-32) Anion Gap 11 (6-14) Blood Urea Nitrogen 12 mg/dL (7-20) Creatinine 0.7 mg/dL (0.6-1.0) Estimated GFR (Cockcroft-Gault) 89.7 BUN/Creatinine Ratio 17 (6-20) Glucose Level 157 mg/dL (70-99) Lactic Acid Level 2.2 mmol/L (0.4-2.0) Calcium Level 8.4 mg/dL (8.5-10.1) Total Bilirubin 0.2 mg/dL (0.2-1.0) Aspartate Amino Transf (AST/SGOT) 23 U/L (15-37) Alanine Aminotransferase (ALT/SGPT) 34 U/L (14-59) Alkaline Phosphatase 92 U/L (46-116) Total Protein 7.0 g/dL (6.4-8.2) Albumin 3.2 g/dL (3.4-5.0) Albumin/Globulin Ratio 0.8 (1.0-1.7) Lipase 171 U/L (73-393) Urine Collection Type Unknown Urine Color Yellow Urine Clarity Clear Urine pH 7.0 (<5.0-8.0) Urine Specific [place] 1.020 (1.000-1.030) Urine Protein Negative mg/dL (NEG-TRACE) Urine Glucose (UA) 250 mg/dL (NEG) Urine Ketones (Stick) Negative mg/dL (NEG) Urine Blood Negative (NEG) Urine Nitrite Negative (NEG) Urine Bilirubin Negative (NEG) Urine Urobilinogen Dipstick 1.0 mg/dL (0.2 mg/dL) Urine Leukocyte Esterase Negative (NEG) Urine RBC 0 /HPF (0-2) Urine WBC Occ /HPF (0-4) Urine Squamous Epithelial Cells Few /LPF Urine Bacteria 0 /HPF (0-FEW) Urine Mucus Slight /LPF Bedside Urine HCG, Qualitative Hcg negative (Negative) SARS-CoV-2 Antigen (Rapid) Negative (NEGATIVE) Test 11/18/19 10:50 11/19/19 03:50 11/19/19 04:30 Lactic Acid Level 1.9 mmol/L (0.4-2.0) Sodium Level 140 mmol/L (136-145) Potassium Level 3.5 mmol/L (3.5-5.1) Chloride Level 107 mmol/L (98-107) Carbon Dioxide Level 24 mmol/L (21-32) Anion Gap 9 (6-14) Blood Urea Nitrogen 5 mg/dL (7-20) Creatinine 0.8 mg/dL (0.6-1.0) Estimated GFR (Cockcroft-Gault) 76.9 BUN/Creatinine Ratio 6 (6-20) Glucose Level 96 mg/dL (70-99) Calcium Level 8.0 mg/dL (8.5-10.1) Total Bilirubin 0.5 mg/dL (0.2-1.0) Aspartate Amino Transf (AST/SGOT) 33 U/L (15-37) Alanine Aminotransferase (ALT/SGPT) 34 U/L (14-59) Alkaline Phosphatase 73 U/L (46-116) Total Protein 6.4 g/dL (6.4-8.2) Albumin 2.8 g/dL (3.4-5.0) Albumin/Globulin Ratio 0.8 (1.0-1.7) White Blood Count 5.7 x10^3/uL (4.0-11.0) Red Blood Count 3.86 x10^6/uL (3.50-5.40) Hemoglobin 11.3 g/dL (12.0-15.5) Hematocrit 33.5 % (36.0-47.0) Mean Corpuscular Volume 87 fL (79-100) Mean Corpuscular Hemoglobin 29 pg (25-35) Mean Corpuscular Hemoglobin Concent 34 g/dL (31-37) Red Cell Distribution Width 14.1 % (11.5-14.5) Platelet Count 228 x10^3/uL (140-400) Neutrophils (%) (Auto) 56 % (31-73) Lymphocytes (%) (Auto) 34 % (24-48) Monocytes (%) (Auto) 7 % (0-9) Eosinophils (%) (Auto) 2 % (0-3) Basophils (%) (Auto) 0 % (0-3) Neutrophils # (Auto) 3.2 x10^3/uL (1.8-7.7) Lymphocytes # (Auto) 2.0 x10^3/uL (1.0-4.8) Monocytes # (Auto) 0.4 x10^3/uL (0.0-1.1) Eosinophils # (Auto) 0.1 x10^3/uL (0.0-0.7) Basophils # (Auto) 0.0 x10^3/uL (0.0-0.2) Laboratory Tests Test 11/19/19 03:50 11/19/19 04:30 Sodium Level 140 mmol/L (136-145) Potassium Level 3.5 mmol/L (3.5-5.1) Chloride Level 107 mmol/L (98-107) Carbon Dioxide Level 24 mmol/L (21-32) Anion Gap 9 (6-14) Blood Urea Nitrogen 5 mg/dL (7-20) Creatinine 0.8 mg/dL (0.6-1.0) Estimated GFR (Cockcroft-Gault) 76.9 BUN/Creatinine Ratio 6 (6-20) Glucose Level 96 mg/dL (70-99) Calcium Level 8.0 mg/dL (8.5-10.1) Total Bilirubin 0.5 mg/dL (0.2-1.0) Aspartate Amino Transf (AST/SGOT) 33 U/L (15-37) Alanine Aminotransferase (ALT/SGPT) 34 U/L (14-59) Alkaline Phosphatase 73 U/L (46-116) Total Protein 6.4 g/dL (6.4-8.2) Albumin 2.8 g/dL (3.4-5.0) Albumin/Globulin Ratio 0.8 (1.0-1.7) White Blood Count 5.7 x10^3/uL (4.0-11.0) Red Blood Count 3.86 x10^6/uL (3.50-5.40) Hemoglobin 11.3 g/dL (12.0-15.5) Hematocrit 33.5 % (36.0-47.0) Mean Corpuscular Volume 87 fL (79-100) Mean Corpuscular Hemoglobin 29 pg (25-35) Mean Corpuscular Hemoglobin Concent 34 g/dL (31-37) Red Cell Distribution Width 14.1 % (11.5-14.5) Platelet Count 228 x10^3/uL (140-400) Neutrophils (%) (Auto) 56 % (31-73) Lymphocytes (%) (Auto) 34 % (24-48) Monocytes (%) (Auto) 7 % (0-9) Eosinophils (%) (Auto) 2 % (0-3) Basophils (%) (Auto) 0 % (0-3) Neutrophils # (Auto) 3.2 x10^3/uL (1.8-7.7) Lymphocytes # (Auto) 2.0 x10^3/uL (1.0-4.8) Monocytes # (Auto) 0.4 x10^3/uL (0.0-1.1) Eosinophils # (Auto) 0.1 x10^3/uL (0.0-0.7) Basophils # (Auto) 0.0 x10^3/uL (0.0-0.2) Microbiology 11/18/19 Blood Culture - Preliminary, Resulted NO GROWTH AFTER 1 DAY Medications Current Medications Hydromorphone HCl (Dilaudid) 1 mg 1X ONCE IV ; Start 11/18/19 at 04:15; Stop 11/18/19 at 04:16; Status Cancel Sodium Chloride 500 ml @ 500 mls/hr 1X ONCE IV Last administered on 11/18/19at 04:45; Start 11/18/19 at 04:45; Stop 11/18/19 at 05:44; Status DC Ondansetron HCl (Zofran) 4 mg 1X ONCE IVP Last administered on 11/18/19at 05:19; Start 11/18/19 at 04:45; Stop 11/18/19 at 05:17; Status DC Hydromorphone HCl (Dilaudid) 1 mg 1X ONCE IV Last administered on 11/18/19at 05:19; Start 11/18/19 at 05:15; Stop 11/18/19 at 05:17; Status DC Ondansetron HCl (Zofran) 4 mg STK-MED ONCE .ROUTE ; Start 11/18/19 at 05:17; Stop 11/18/19 at 05:17; Status DC Iohexol (Omnipaque 300 Mg/ml) 75 ml 1X ONCE IV Last administered on 11/18/19at 06:46; Start 11/18/19 at 06:45; Stop 11/18/19 at 06:46; Status DC Info (CONTRAST GIVEN -- Rx MONITORING) 1 each PRN DAILY PRN MC SEE COMMENTS; Start 11/18/19 at 06:45; Stop 11/20/19 at 06:44 Levofloxacin/ Dextrose 150 ml @ 100 mls/hr 1X ONCE IV Last administered on 11/18/19at 09:59; Start 11/18/19 at 09:15; Stop 11/18/19 at 10:44; Status DC Ondansetron HCl (Zofran) 4 mg PRN Q8HRS PRN IV NAUSEA/VOMITING; Start 11/18/19 at 09:45; Stop 11/18/19 at 10:13; Status DC Morphine Sulfate (Morphine Sulfate) 2 mg PRN Q2HR PRN IV PAIN; Start 11/18/19 at 09:45; Stop 11/19/19 at 09:44; Status DC Sodium Chloride 1,000 ml @ 125 mls/hr Q8H IV Last administered on 11/19/19at 03:16; Start 11/18/19 at 09:43; Stop 11/19/19 at 09:42; Status DC Sodium Chloride (Normal Saline Flush) 3 ml QSHIFT PRN IV AFTER MEDS AND BLOOD DRAWS; Start 11/18/19 at 10:15 Sodium Chloride 1,000 ml @ 100 mls/hr Q10H IV ; Start 11/19/19 at 10:00 Ondansetron HCl (Zofran) 4 mg PRN Q4HRS PRN IV NAUSEA/VOMITING; Start 11/18/19 at 10:15 Zolpidem Tartrate (Ambien) 5 mg PRN QHS PRN PO INSOMNIA; Start 11/18/19 at 10:15 Acetaminophen (Tylenol) 650 mg PRN Q4HRS PRN PO TEMP OVER 100.4F OR MILD PAIN; Start 11/18/19 at 10:15 Al Hydroxide/Mg Hydroxide (Mylanta Plus Xs) 30 ml PRN DAILY PRN PO HEARTBURN / GAS; Start 11/18/19 at 10:15 Clonidine HCl (Catapres) 0.1 mg PRN Q6HRS PRN PO SBP>160 OR DBP>90; Start 11/18/19 at 10:15 Sodium Monofluorophosphate (Fleet Adult) 133 ml PRN DAILY PRN [place] CONSTIPATION; Start 11/18/19 at 10:15 Docusate Sodium (Colace) 100 mg PRN BID PRN PO HARD STOOLS; Start 11/18/19 at 10:15 Albuterol Sulfate (Ventolin Neb Soln) 2.5 mg PRN Q4HRS PRN NEB SHORTNESS OF BREATH; Start 11/18/19 at 10:15 Guaifenesin (Robitussin) 200 mg PRN Q4HRS PRN PO COUGH; Start 11/18/19 at 10:15 Lorazepam (Ativan) 0.5 mg PRN Q4HRS PRN PO ANXIETY / AGITATION; Start 11/18/19 a t 10:15 Enoxaparin Sodium (Lovenox 40mg Syringe) 40 mg Q24H SQ Last administered on 11/18/19at 16:53; Start 11/18/19 at 16:00 Piperacillin Sod/ Tazobactam Sod 3.375 gm/Sodium Chloride 50 ml @ 100 mls/hr Q6HRS IV Last administered on 11/19/19at 06:03; Start 11/18/19 at 12:00 Iohexol (Omnipaque 300 Mg/ml) 100 ml STK-MED ONCE .ROUTE ; Start 11/18/19 at 10:57; Stop 11/18/19 at 10:58; Status DC Lactobacillus Rhamnosus (Culturelle) 1 cap BID PO Last administered on 11/18/19at 21:37; Start 11/18/19 at 21:00 Propofol (Diprivan) 200 mg STK-MED ONCE IV ; Start 11/19/19 at 10:45; Stop 11/19/19 at 10:45; Status DC Lidocaine HCl (Lidocaine Pf 2% Vial) 5 ml STK-MED ONCE .ROUTE ; Start 11/19/19 at 10:45; Stop 11/19/19 at 10:45; Status DC Succinylcholine Chloride (Anectine) 200 mg STK-MED ONCE .ROUTE ; Start 11/19/19 at 10:45; Stop 11/19/19 at 10:45; Status DC Fentanyl Citrate (Fentanyl 2ml Vial) 100 mcg STK-MED ONCE .ROUTE ; Start 11/19/19 at 10:45; Stop 11/19/19 at 10:45; Status DC Rocuronium [place] (Zemuron) 50 mg STK-MED ONCE .ROUTE ; Start 11/19/19 at 10:46; Stop 11/19/19 at 10:46; Status DC Active Scripts Active Reported No Known Medications Prior To Admisstion (Info) Each 1 Each 1X Vitals/I & O Vital Sign - Last 24 Hours 11/18/19 11/18/19 11/18/19 11/18/19 11:15 11:18 11:55 15:00 Temp 98.2 97.6 98.2 97.6 Pulse 63 74 Resp 16 16 B/P (MAP) 152/76 (101) 135/72 (93) Pulse Ox 100 98 99 O2 Delivery Room Air Room Air Room Air Room Air 11/18/19 11/18/19 11/18/19 11/19/19 19:23 20:00 23:00 03:00 Temp 98.5 98.7 98.5 98.5 98.7 98.5 Pulse 65 64 81 Resp 16 18 18 B/P (MAP) 124/61 (82) 131/67 (88) 106/69 (81) Pulse Ox 100 99 100 O2 Delivery Room Air Room Air Room Air Room Air 11/19/19 11/19/19 07:55 08:12 Temp 98.3 98.3 Pulse 72 Resp 16 B/P (MAP) 120/64 (82) Pulse Ox 98 O2 Delivery Room Air Room Air Intake and Output 11/18/19 11/18/19 11/19/19 15:00 23:00 07:00 Intake Total 200 ml 1050 ml 0 ml Output Total 1900 ml 500 ml Balance 200 ml -850 ml -500 ml Justicifation of Admission Dx: Justifications for Admission: Justification of Admission Dx: Yes JOAO DOHERTY MD Nov 19, 2019 10:57
[2019-11-19] MEDS ORDERED: BUPIVACAINE MPF 0.5% 30 ML VIAL. ONE (11:14)
[2019-11-19] MEDS ORDERED: IOHEXOL 300 MG/ML 50 ML VIAL. ONE (11:14)
[2019-11-19] MEDS ORDERED: SURGICEL HEMOSTAT 4X8 EACH. ONE (11:14)
[2019-11-19] MEDS ORDERED: IV RINGERS,LACTATED 1000ML 1,000 ML IV SCH (12:54)
[2019-11-19] MEDS ORDERED: fentaNYL PF VIAL 100 MCG/2 ML VIAL IV PRN ×2 (13:00)
[2019-11-19] MEDS ORDERED: HYDROmorphone 2 MG/ML VIAL IV PRN (13:00)
[2019-11-19] MEDS ORDERED: MORPHINE SULFATE 2 MG/ML VIAL. IV PRN (13:00)
[2019-11-19] MEDS ORDERED: PROCHLORPERAZINE 10 MG/2 ML VIAL. IV PRN (13:00)
[2019-11-19] MEDS ORDERED: ONDANSETRON PF 4 MG/2 ML VIAL. ONE (13:31)
[2019-11-19] MEDS ORDERED: DEXAMETHASONE SOD PHOS 4 MG/ML VIAL ONE (13:31)
[2019-11-19] MEDS ORDERED: DESFLURANE 31 TO 60 MINUTES IH ONE (13:31)
[2019-11-19] MEDS ORDERED: PHENYLEPHRINE in 0.9% NACL PF 1 MG/10 ML SYRINGE. IV ONE (13:43)
[2019-11-19] MEDS ORDERED: GLYCOPYRROLATE 1 MG/5 ML VIAL. ONE (13:45)
[2019-11-19] MEDS ORDERED: NEOSTIGMINE METHYLSULFATE 5 MG/5 ML SYRINGE. ONE (13:45)
[2019-11-19] MEDS ORDERED: KETOROLAC 30 MG/ML VIAL. ONE (14:10)
--- NOTE | 2019-11-19 14:26 | PDOC4 ---
Operative Note Operative Note Operative Note: Preoperative Diagnosis: Calculus cholecystitis Postoperative Diagnosis: Same Procedure: Laparoscopic cholecystectomy with intraoperative cholangiogram Surgeons: [facility] Medical Data Entry Clerk: Perry MELGAR Anesthesia: Gen. Estimated Blood Loss: 10 mL Specimen: Gallbladder to pathology Drains: None Complications: None Indications: The patient is a 49-year-old female who was admitted with abdominal pain. Her evaluation is consistent with calculus cholecystitis. Surgical treatment was offered by means of a laparoscopic cholecystectomy. The risks of surgery were discussed which include bleeding, infection, bile duct injury, bile leak, pain, the potential for additional surgeries or procedures. The patient understands and would like to proceed. Description: The patient was taken to the operating room and laid supine on the operating table. General anesthesia was performed. The abdomen was prepped with ChloraPrep and draped in a standard surgical fashion. A small infraumbilical incision was made with a scalpel. The Veress needle was then inserted and a pneumoperitoneum was then created. A 5 mm trocar was then inserted and the laparoscope was introduced. In the upper midabdomen a 5 mm trocar was inserted and in the right upper quadrant two 2.3 mm mini lap graspers were inserted. The gallbladder was retracted cephalad. The cystic duct was dissected free from surrounding tissues. One clip was placed on the duct near the gallbladder junction. An opening was made in the duct and a cholangiocatheter placed within and secured with a clip. Using contrast dye and fluoroscopy an intraoperative cholangiogram was performed that appeared unremarkable. The clip and catheter were then withdrawn. Three clips were placed on the cystic duct and it was divided. The cystic artery was then identified, dissected free, doubly clipped and divided as well. The gallbladder was then mobilized away from the liver with cautery. The umbilical 5 millimeter trocar was exchanged for an 11 millimeter trocar. The gallbladder was then placed in an endoscopic bag and extracted at the umbilical trocar site. The fascia there was closed with an 0 Vicryl suture. All blood and irrigation fluid was suctioned and hemostasis was good. The remaining ports were removed and the pneumoperitoneum was relieved. The skin incisions were injected with half percent Marcaine with epinephrine, and all were closed using 4-0 Monocryl suture. Steri-Strips and dressings were then applied. The patient tolerated the procedure well and was sent to the recovery room in stable condition. At t he end of the case all counts were correct. HIPOLITO ALVARADO MD Nov 19, 2019 14:26
[2019-11-19] MEDS ORDERED: oxyCODONE/APAP 5/325 1 TAB TABLET PO PRN ×2 (14:30)
--- NOTE | 2019-11-19 14:32 | RAD ---
INDICATION: Fluoroscopy for procedure.Reason: CHOLANGIOGRAM IN OR W/C-ARM / Spl. Instructions: / History: IMPRESSION: Fluoroscopy was utilized by the clinical service to assist with their procedure. There are 2 saved images/series. 10 seconds of fluoroscopy time was used. The limited saved images show Spot images of the upper abdomen with contrast injection of the bile ducts with contrast seen within the cystic duct as well as the common bile duct with contrast extending into the duodenum without evidence of common bile duct obstruction. Within the proximal common bile duct as well as the distal common hepatic duct there is a couple of tiny radiolucencies seen. Could be artifactual in nature but a filling defect from debris, air bubble or tiny nonobstructive stone could have this appearance.. This dictation is for the usage of fluoroscopy only. Please see the clinical service's procedure note for detail on the procedure. Electronically signed by: Nabil Lozano MD (11/19/2019 2:28 PM) [id number]
[2019-11-19] MEDS: ENOXAPARIN 40 MG/0.4 ML SYRINGE. SQ SCH (16:00)
[2019-11-20 03:00] VITALS: BP 102/51
[2019-11-20] MEDS: PIPERACILLIN/TAZOBACTAM 3.375 GM in IV NORMAL SALINE 50ML 50 ML IV SCH ×2 (05:43→12:00)
[2019-11-20] MEDS: IV NORMAL SALINE 1000ML BAG 1,000 ML IV SCH (06:00)
[2019-11-20 07:00] VITALS: BP 117/62
[2019-11-20] MEDS: LACTOBACILLUS RHAMNOSUS GG 1 CAPSULE. PO SCH (07:58)
--- NOTE | 2019-11-20 09:29 | NUR ---
SW following. Discussed with RN, pt from home with , Maced[place] speaking. Pt had surgery 11/18, wants to discharge home. Full liquid diet, room air. SW will continue to follow.
--- NOTE | 2019-11-20 10:04 | PDOC ---
SURGICAL PROGRESS NOTE DATE: 11/20/19 TIME: 10:01 Subjective tolerating diet no pain Vital Signs Vital Signs Date Time Temp Pulse Resp B/P (MAP) Pulse Ox O2 Delivery O2 Flow Rate FiO2 11/20/19 07:00 97.9 57 16 117/62 (80) 98 Room Air 97.9 11/19/19 14:50 10 I&O Intake and Output 11/20/19 07:00 Intake Total 1700 ml Output Total 410 ml Balance 1290 ml Intake Oral 150 ml IV Total 1550 ml Output Urine Total 400 ml Estimated Blood Loss 10 ml # Voids 3 General: Alert, Oriented X3, Cooperative Abdomen: Soft, Other (lap dressings dry) Labs Laboratory Tests Test 11/18/19 10:40 11/18/19 10:50 11/19/19 03:50 11/19/19 04:30 Coronavirus (PCR) Not detected (Not Detected) SARS-CoV-2 Antigen (Rapid) Negative (NEGATIVE) Lactic Acid Level 1.9 mmol/L (0.4-2.0) Sodium Level 140 mmol/L (136-145) Potassium Level 3.5 mmol/L (3.5-5.1) Chloride Level 107 mmol/L (98-107) Carbon Dioxide Level 24 mmol/L (21-32) Anion Gap 9 (6-14) Blood Urea Nitrogen 5 mg/dL (7-20) Creatinine 0.8 mg/dL (0.6-1.0) Estimated GFR (Cockcroft-Gault) 76.9 BUN/Creatinine Ratio 6 (6-20) Glucose Level 96 mg/dL (70-99) Calcium Level 8.0 mg/dL (8.5-10.1) Total Bilirubin 0.5 mg/dL (0.2-1.0) Aspartate Amino Transf (AST/SGOT) 33 U/L (15-37) Alanine Aminotransferase (ALT/SGPT) 34 U/L (14-59) Alkaline Phosphatase 73 U/L (46-116) Total Protein 6.4 g/dL (6.4-8.2) Albumin 2.8 g/dL (3.4-5.0) Albumin/Globulin Ratio 0.8 (1.0-1.7) White Blood Count 5.7 x10^3/uL (4.0-11.0) Red Blood Count 3.86 x10^6/uL (3.50-5.40) Hemoglobin 11.3 g/dL (12.0-15.5) Hematocrit 33.5 % (36.0-47.0) Mean Corpuscular Volume 87 fL (79-100) Mean Corpuscular Hemoglobin 29 pg (25-35) Mean Corpuscular Hemoglobin Concent 34 g/dL (31-37) Red Cell Distribution Width 14.1 % (11.5-14.5) Platelet Count 228 x10^3/uL (140-400) Neutrophils (%) (Auto) 56 % (31-73) Lymphocytes (%) (Auto) 34 % (24-48) Monocytes (%) (Auto) 7 % (0-9) Eosinophils (%) (Auto) 2 % (0-3) Basophils (%) (Auto) 0 % (0-3) Neutrophils # (Auto) 3.2 x10^3/uL (1.8-7.7) Lymphocytes # (Auto) 2.0 x10^3/uL (1.0-4.8) Monocytes # (Auto) 0.4 x10^3/uL (0.0-1.1) Eosinophils # (Auto) 0.1 x10^3/uL (0.0-0.7) Basophils # (Auto) 0.0 x10^3/uL (0.0-0.2) Problem List Problems Medical Problems: (1) Acute cholecystitis Status: Acute (2) RUQ pain Status: Acute Assessment/Plan s/p lisa [place] to [place] home Fu 2 weeks Justicifation of Admission Dx: Justifications for Admission: Justification of Admission Dx: Yes VICTORIA HAYES [employer] Nov 20, 2019 10:04
[2019-11-20] MEDS ORDERED: DOCU-153 PO (10:06)
[2019-11-20] MEDS ORDERED: OXYC1TAB15 PO (10:06)
[2019-11-20 11:00] VITALS: BP 115/60
--- NOTE | 2019-11-20 13:16 | PDOC3 ---
Discharge Summary Visit Information Date of Admission: Nov 18, 2019 Date of Discharge: Nov 20, 2019 Final Diagnosis 1. acute Cholelithiasis. // subtle hypodensity at the gallbladder fossa mild edema from inflammation due to early changes of cholecystitis. on ct d 2. Appendix is negative. Problems Medical Problems: (1) Acute cholecystitis Status: Acute (2) RUQ pain Status: Acute Brief Hospital Course Allergies Allergies Coded Allergies Type Severity Reaction Last Updated Verified No Known Drug Allergies 11/18/19 No Vital Signs Vital Signs Date Time Temp Pulse Resp B/P (MAP) Pulse Ox O2 Delivery O2 Flow Rate FiO2 11/20/19 11:00 98.3 60 18 115/60 (78) 99 Room Air 98.3 11/19/19 14:50 10 Lab Results Laboratory Tests Test 11/19/19 03:50 11/19/19 04:30 Sodium Level 140 mmol/L (136-145) Potassium Level 3.5 mmol/L (3.5-5.1) Chloride Level 107 mmol/L (98-107) Carbon Dioxide Level 24 mmol/L (21-32) Anion Gap 9 (6-14) Blood Urea Nitrogen 5 mg/dL (7-20) Creatinine 0.8 mg/dL (0.6-1.0) Estimated GFR (Cockcroft-Gault) 76.9 BUN/Creatinine Ratio 6 (6-20) Glucose Level 96 mg/dL (70-99) Calcium Level 8.0 mg/dL (8.5-10.1) Total Bilirubin 0.5 mg/dL (0.2-1.0) Aspartate Amino Transf (AST/SGOT) 33 U/L (15-37) Alanine Aminotransferase (ALT/SGPT) 34 U/L (14-59) Alkaline Phosphatase 73 U/L (46-116) Total Protein 6.4 g/dL (6.4-8.2) Albumin 2.8 g/dL (3.4-5.0) Albumin/Globulin Ratio 0.8 (1.0-1.7) White Blood Count 5.7 x10^3/uL (4.0-11.0) Red Blood Count 3.86 x10^6/uL (3.50-5.40) Hemoglobin 11.3 g/dL (12.0-15.5) Hematocrit 33.5 % (36.0-47.0) Mean Corpuscular Volume 87 fL (79-100) Mean Corpuscular Hemoglobin 29 pg (25-35) Mean Corpuscular Hemoglobin Concent 34 g/dL (31-37) Red Cell Distribution Width 14.1 % (11.5-14.5) Platelet Count 228 x10^3/uL (140-400) Neutrophils (%) (Auto) 56 % (31-73) Lymphocytes (%) (Auto) 34 % (24-48) Monocytes (%) (Auto) 7 % (0-9) Eosinophils (%) (Auto) 2 % (0-3) Basophils (%) (Auto) 0 % (0-3) Neutrophils # (Auto) 3.2 x10^3/uL (1.8-7.7) Lymphocytes # (Auto) 2.0 x10^3/uL (1.0-4.8) Monocytes # (Auto) 0.4 x10^3/uL (0.0-1.1) Eosinophils # (Auto) 0.1 x10^3/uL (0.0-0.7) Basophils # (Auto) 0.0 x10^3/uL (0.0-0.2) Brief Hospital Course Ms. Mohr is a 49 old admit for abd pain, acute lisa. surg 11/18, did well Discharge Information Condition at Discharge: Improved Follow Up: Weeks Disposition/Orders: D/C to Home Scheduled Info (No Known Medications Prior To Admisstion) Each, 1 EACH MC 1X for no home meds, (Reported) Entered as Reported by: DESTINY KHANNA on 11/18/191129 Last Action: New Order on 11/18/191129 by DESTINY KHANNA Scheduled PRN Docusate Sodium (Dok) 100 Mg Capsule, 100 MG PO PRN BID PRN for HARD STOOLS, #60 Ref 0 Prescribed by: Mily Castillo on 11/20/191005 Oxycodone/Apap 5-325 (Percocet 5-325 Mg Tablet ) 1 Each Tablet, 1 TAB PO PRN Q4HRS PRN for PAIN, #30 Ref 0 Prescribed by: Mily Castillo on 11/20/19 100 Patient Instructions Patient Instructions f/u with gen surg, shedid well Justicifation of Admission Dx: Justifications for Admission: Justification of Admission Dx: Yes JOAO DOHERTY MD Nov 20, 2019 13:16
--- NOTE | 2019-11-20 18:06 | PATHOLOGY ---
[facility] Accession Number: [id number] . 01 Material submitted: . gallbladder - GALLBLADDER AND CONTENTS . 01 Clinical history: . Acute cholecystitis . 02 Diagnosis: Gallbladder, laparoscopic cholecystectomy: - Cholelithiasis. - Cholesterolosis. - Chronic cholecystitis. LBQ 11/20/2019 1615 Local . 02 Comment: There is no evidence of malignancy. (JPM/db; 11/20/2019) . 02 Electronically signed: . Wilman Marshall MD, Pathologist NPI- [id number] . 01 Gross description: . The specimen is received in formalin, labeled "Heather Mohr, gallbladder and contents". Received is a previously opened gallbladder measuring 9.5 x 2.2 x 1.0 cm in greatest dimensions displaying a pink-oropeza to pink-jones serosal surface. Opening the specimen reveals a velvety, pink-red mucosa with a gallbladder wall thickness of 0.1 cm. The lumen of the gallbladder is filled with bile stained to blood-tinged, thick viscous material. A single yellow-green, granular calculus is present, and no masses or lesions are noted grossly. Dandy Tender sections, to include the proximal margin, are submitted in cassette A1. (CAA; 11/19/2019) QAC/QAC 11/19/2019 1721 Local . 02 Pathologist provided ICD-10: K80.10, K82.4 . 02 CPT . 443793 Specimen Comment: A courtesy copy of this report has been sent to [phone] Specimen Comment: [id number] Specimen Comment: Report sent to / DR GALICIA Performed at: [address], [place], [place] [id number] MD Lavon Moreira MD Phone: [phone] Performed at: [address] [id number] MD Wilman Marshall MD Phone: [phone]
== END 2019-11-20 12:05 | disposition home or self-care (01) | DRG 419 ==
LOC: ER 03:55 → 6 SOUTH 09:38 → 4 NORTH 11-19 16:14
PROVIDERS: ADMIT Family Medicine; ATTEND Family Medicine
PROC: 0FT44ZZ Resection of Gallbladder, Percutaneous Endoscopic Approach (ICD-10-PCS; principal; 2019-11-18)
PROC: BF101ZZ Fluoroscopy of Bile Ducts using Low Osmolar Contrast (ICD-10-PCS; 2019-11-18)
DX: K80.00 Calculus of gallbladder with acute cholecystitis without obstruction (principal); E78.5 Hyperlipidemia, unspecified; K43.9 Ventral hernia without obstruction or gangrene; Z20.828 Contact with and (suspected) exposure to other viral communicable diseases; Z82.49 Family history of ischemic heart disease and other diseases of the circulatory system; Z79.899 Other long term (current) drug therapy
CPT/HCPCS: 36415; 74177; 74300; 76705; 80053; 81001; 81025; 83605; 83690; 85025; 85610; 87040; 87426; 88304; 96361; 96365; 96375; 99285; A7015; J0330; J1100; J1170; J1650; J1885; J1956; J2370; J2405; J2543; J2704; J2710; J3010; J3490; J7030; J7040; J7120; Q9967; G0378; U0003-CS